=== PATIENT | female | born 1975 | race Caucasian/White ===

== ENCOUNTER 2018-08-16 13:54 | Outpatient (CLI) | payer BC ==
--- NOTE | 2018-08-16 16:12 | ULT ---
PELVIC ULTRASOUND: 08/16/18 Transabdominal and endovaginal ultrasound of pelvis performed. INDICATIONS: 43-year-old female with pelvic pain and vaginal bleeding. FINDINGS: The uterus is prominent measuring 10.6 x 5.1 x 5.5 cm. There are areas of heterogeneity in the myometrium consistent with fibroids. A large fibroid in the a nterior myometrium measures up to 3 cm. Fibroid in the right myometrium measures 1.5 cm. Endometrium measures 4 to 6 mm. Both ovaries are identified and appear unremarkable. Color doppler and spectral analysis demonstrates blood flow to both ovaries. Normal appearing follicles are seen bilaterally. There is a 1.5 cm cyst right ovary. IMPRESSION: 1. Myometrial fibroids are identified. 2. Pelvic ultrasound otherwise unremarkable. POS: VANGIE
== END 2018-08-16 13:55 | disposition home or self-care (01) ==
LOC: BICRAD 13:54
PROVIDERS: ATTEND Preventive Medicine Public Health & General Preventive Medicine
DX: R10.2 Pelvic and perineal pain (principal); D25.9 Leiomyoma of uterus, unspecified
CPT/HCPCS: 76856

== ENCOUNTER 2018-08-16 14:16 | Outpatient (CLI) | payer BC ==
--- NOTE | 2018-08-16 16:05 | BD ---
BONE DENSITOMETRY: 08/16/18 INDICATIONS: 43-year-old female for postmenopausal osteoporosis screening. Lumbar Spine: BMD (g/cm2) L1 0.914 T-Score: -0.7 L2 1.005 T-Score: -0.2 L3 1.020 T-Score: -0.6 L4 1.002 T-Score: -0.5 L1-L4 0.987 T-Score: -0.5 Femoral Neck: 0.685 T-Score: -1.5 Total Femur: 0.942 T-Score: 0.0 Impression: 1. Bone mineral density of the lumbar spine within normal range. 2. Bone mineral density of the femoral neck indicates osteopenia. Ten year fracture risk: Major osteoporotic fracture: 3% Hip fracture: 0.3%. POS: VANGIE
== END 2018-08-16 14:17 | disposition home or self-care (01) ==
LOC: BICMAMMO 14:16
PROVIDERS: ATTEND Preventive Medicine Public Health & General Preventive Medicine
DX: Z12.31 Encounter for screening mammogram for malignant neoplasm of breast (principal); Z13.820 Encounter for screening for osteoporosis; M81.0 Age-related osteoporosis without current pathological fracture; M85.859 Other specified disorders of bone density and structure, unspecified thigh; Z80.3 Family history of malignant neoplasm of breast
CPT/HCPCS: 77063; 77067; 77080

== ENCOUNTER 2019-03-11 10:35 | Outpatient (CLI) | payer BC ==
--- NOTE | 2019-03-11 11:47 | ULT ---
US Pelvic Transvag W Doppler HISTORY: Pelvic pain COMPARISON: Reference is made to 08/16/2018 exam TECHNIQUE: Multiple grayscale and color Doppler images were obtained in a transabdominal and transvag inal pelvic ultrasound. Spectral analysis of the Doppler waveforms of the ovaries were performed. FINDINGS: CERVIX: Mild fluid of the endocervical canal UTERUS: Heterogeneous echotexture with focal areas of altered echogenicity, likely uterine fibroids, measuring up to approximately 2.4 cm ENDOMETRIAL STRIPE: 16 mm. No free fluid is present. RIGHT OVARY: Normal flow, without focal mass. LEFT OVARY: Normal flow, without focal mass. IMPRESSION: Findings most consistent with fibroid uterus. Thickened endometrium. Recommend follow-up with gynecologic examination in order to exclude underlyin g pathology, such as neoplasm. Imaging follow-up is also recommended to confirm resolution.
== END 2019-03-11 10:36 | disposition home or self-care (01) ==
LOC: BICULT 10:35
PROVIDERS: ATTEND Preventive Medicine Public Health & General Preventive Medicine
DX: N93.8 Other specified abnormal uterine and vaginal bleeding (principal); R10.2 Pelvic and perineal pain; R97.1 Elevated cancer antigen 125 [CA 125]; D25.9 Leiomyoma of uterus, unspecified
CPT/HCPCS: 76856

== ENCOUNTER 2020-04-30 16:24 | Emergency (ER) | payer BC, OTHER ==
[2020-05-01 14:45] LABS: SARS-CoV-2 MS2 Positive; SARS-CoV-2 N Gene Negative; SARS-CoV-2 S Gene Negative; SARS-CoV-2 orf1ab Negative
== END 2020-04-30 17:16 | disposition home or self-care (01) ==
LOC: ERS 16:24
DX: J02.9 Acute pharyngitis, unspecified (principal); Z20.828 Contact with and (suspected) exposure to other viral communicable diseases
CPT/HCPCS: 87635; 99283; U0003

== ENCOUNTER 2020-05-08 17:02 | Emergency (ER) | payer BC, OTHER ==
[2020-05-09 13:19] LABS: SARS-CoV-2 MS2 Positive; SARS-CoV-2 N Gene Negative; SARS-CoV-2 S Gene Negative; SARS-CoV-2 orf1ab Negative
== END 2020-05-08 17:29 | disposition home or self-care (01) ==
LOC: ERS 17:02
DX: R19.7 Diarrhea, unspecified (principal); Z20.828 Contact with and (suspected) exposure to other viral communicable diseases
CPT/HCPCS: 87635; 99283; U0003

== ENCOUNTER 2020-10-07 08:02 | Outpatient (CLI) | payer BC ==
--- NOTE | 2020-10-07 09:03 | BD ---
BONE DENSITOMETRY: INDICATION: Postmenopausal screening. FINDINGS: Lumbar Spine: BMD (g/cm2) L1 0.912 T-Score: -0.7 L2 1.012 T-Score: -0.1 L3 0.993 T-Score: -0.8 L4 0.982 T-Score: -0.7 L1-L4 0.975 T-Score: -0.7 Femoral Neck: 0.691 T-Score: -1.4 Total Femur: 0.852 T-Score: -0.7 Impression: 1. Bone mineral density of the lumbar spine within normal range. 2. Bone mineral density of the femoral neck indicates osteopenia. Ten-Year Fracture Risk: Major osteoporotic fracture: 3.7%. Hip fracture: 0.3%. POS: AGW
--- NOTE | 2020-10-07 11:07 | MMO ---
Bilateral MAMMO Bilat Screen [facility]. CLINICAL HISTORY: Patient is 45 years old and is seen for screening. The patient has the following family history of breast cancer: paternal aunt, malignant (generic). The patient has no personal history of cancer. VIEWS: The views performed were: bilateral craniocaudal with tomosynthesis and bilateral mediolateral oblique with tomosynthesis. FILMS COMPARED: The present examination has been compared to prior imaging studies performed at [facility] on 08/13/2008, and at [facility] on 02/03/2016 and 08/16/2018. This study has been interpreted with the assistance of computer-aided detection. MAMMOGRAM FINDINGS: The breasts are heterogeneously dense, which could obscure a lesion on mammography. There are no suspicious masses, suspicious calcifications, or new areas of architectural distortion. IMPRESSION: THERE IS NO MAMMOGRAPHIC EVIDENCE OF MALIGNANCY. A ROUTINE FOLLOW-UP MAMMOGRAM IN 1 YEAR IS RECOMMENDED. THE RESULTS OF THIS EXAM WERE SENT TO THE PATIENT. ACR BI-RADS Category 1 - Negative MAMMOGRAPHY NOTE: 1. A negative mammogram report should not delay a biopsy if a dominant of clinically suspicious mass is present. 2. Approximately 10% to 15% of breast cancers are not detected by mammography. 3. Adenosis and dense breasts may obscure an underlying neoplasm. Reported by: XIOMY SHI MD Electonically Signed: [id number]
== END 2020-10-07 08:03 | disposition home or self-care (01) ==
LOC: BICMAMMO 08:02
PROVIDERS: ATTEND Preventive Medicine Public Health & General Preventive Medicine
DX: Z12.31 Encounter for screening mammogram for malignant neoplasm of breast (principal); M81.0 Age-related osteoporosis without current pathological fracture; Z80.3 Family history of malignant neoplasm of breast; M85.859 Other specified disorders of bone density and structure, unspecified thigh
CPT/HCPCS: 77063; 77067; 77080

== ENCOUNTER 2022-01-06 08:38 | Outpatient (CLI) | payer BC | END 2022-01-06 08:39 | disposition home or self-care (01) | LOC: BICMAMMO 08:38 | PROVIDERS: ATTEND Family Medicine | DX: Z12.31 Encounter for screening mammogram for malignant neoplasm of breast (principal); Z80.3 Family history of malignant neoplasm of breast | CPT/HCPCS: 77063; 77067 ==